=== PATIENT | male | born 2000 | race American Indian/Alaskan Native ===

== ENCOUNTER 2023-03-05 22:49 | Emergency (ER) | payer OTHER ==
[2023-03-05] MEDS ORDERED: Sodium Chloride 0.9% 10 ML Syringe FLUSH PRN (23:07)
[2023-03-05] MEDS ORDERED: LORazepam 2 MG/ML SDV IVPUSH ONE (23:21)
[2023-03-05] MEDS ORDERED: Sodium Chloride 0.9% 1,000 ML IV ONE (23:21)
[2023-03-05 23:23] LABS: HEMOGLOBIN 15.5 g/dL (12.9-17.7)
[2023-03-05 23:25] LABS: HEMATOCRIT 45.1 % (38.3-50.1); MEAN CORPUSCULAR HEMOGLOBIN 31.3 pg (27.0-33.3); MEAN CORPUSCULAR HGB CONC 34.3 g/dL (28.7-35.3); MEAN CORPUSCULAR VOLUME 91.2 fL (80.8-98.7); MEAN PLATELET VOLUME 7.7 fL (6.7-11.0); PLATELET COUNT,PLT 282 x10(3)uL (117-477); RED BLOOD CELL COUNT 4.95 x10(6)uL (3.90-5.90); RED CELL DISTRIBUTION WIDTH 13.1 % (12.4-15.0); WHITE BLOOD CELL COUNT,WBC 20.1 x10-3/uL (3.2-10.1)
[2023-03-05 23:27] LABS: BLOOD UREA NITROGEN,BUN 10 mg/dL (7-18); BUN/CREATININE RATIO 11.1 (9-20); CALCIUM 9.4 mg/dL (8.6-10.2); CARBON DIOXIDE,CO2 23 mmol/L (21-32); CHLORIDE,CL 103 mmol/L (100-110); CREATININE 0.9 mg/dL (0.70-1.30); ESTIMATED GFR 125 mL/min (>60); GLUCOSE RANDOM 113 mg/dL (80-116); POTASSIUM,K 3.7 mmol/L (3.5-5.3); SODIUM,NA 139 mmol/L (135-145)
[2023-03-05 23:30] LABS: C-REACTIVE PROTEIN 0.57 mg/dL (<0.33); LIPASE 20 U/L (16-77)
[2023-03-05 23:32] LABS: ETHANOL BLOOD MEDICAL < 0.03 % (<0.03)
[2023-03-05 23:35] LABS: A/G RATIO 1.1; ALANINE AMINOTRANSFERASE,ALT 25 U/L (12-36); ALBUMIN 4.2 g/dL (3.5-5.2); ALKALINE PHOSPHATASE 87 IU/L (56-112); ASPARTATE AMNIOTRANSFERASE,AST 23 IU/L (5-25); BILIRUBIN TOTAL 0.9 mg/dL (0.1-1.3)
[2023-03-05 23:45] LABS: EOSINOPHILS PERCENT MAN 1 % (0-5); LYMPHOCYTES PERCENT MAN 13 % (13-37); MONOCYTES PERCENT MAN 3 % (4-12); SEG NEUTROPHILS PERCENT MAN 83 % (46-82)
[2023-03-05 23:53] LABS: BILIRUBIN,URINE NEGATIVE (NEGATIVE); GLUCOSE,URINE NORMAL (NORMAL); KETONES,URINE NEGATIVE (NEGATIVE); LEUKOCYTE ESTERASE,URINE NEGATIVE (NEGATIVE); NITRITE,URINE NEGATIVE (NEGATIVE); OCCULT BLOOD,URINE NEGATIVE (NEGATIVE); PROTEIN,URINE NEGATIVE (NEGATIVE); UROBILINOGEN,URINE NORMAL (NEGATIVE)
[2023-03-05 23:58] LABS: COLOR,URINE YELLOW (YELLOW)
[2023-03-05 23:59] LABS: APPEARANCE,URINE CLEAR (CLEAR); BACTERIA,URINE OCCASIONAL (NS); RBC,URINE 0-5 (0-5); SQUAMOUS EPITHELIAL CELLS,UR RARE (NS,R,O); WBC,URINE 0-5 (0-5)
[2023-03-06 00:04] LABS: THC SCREEN,URINE POSITIVE (NEGATIVE)
[2023-03-06 00:05] LABS: AMPHETAMINES SCREEN, URINE NEGATIVE (NEGATIVE); BARBITURATE SCREEN,URINE NEGATIVE (NEGATIVE); BENZODIAZEPINES SCREEN,URINE NEGATIVE (NEGATIVE); BUPRENORPHINE SCREEN,URINE NEGATIVE (NEGATIVE); METHADONE SCREEN, URINE NEGATIVE (NEGATIVE); METHAMPHETAMINE SCREEN, URINE NEGATIVE (NEGATIVE); OXYCODONE SCREEN,URINE NEGATIVE (NEGATIVE); PROPOXYPHENE SCREEN,URINE NEGATIVE (NEGATIVE)
[2023-03-06] MEDS ORDERED: Ketorolac 30 MG/ML SDV IVPUSH ONE (00:36)
[2023-03-06] MEDS ORDERED: LORazepam 2 MG/ML SDV IVPUSH ONE (00:36)
[2023-03-06 01:48] LABS: STREP A BY PCR NOT DETECTED (NOT DETECT)
[2023-03-06 02:01] LABS: CORONAVIRUS COVID-19 NAA NEGATIVE (NEGATIVE)
== END 2023-03-06 02:41 | disposition home or self-care (01) ==
LOC: FB.ED 22:49
DX: E86.0 Dehydration (principal); M62.838 Other muscle spasm; R10.9 Unspecified abdominal pain; Z72.0 Tobacco use; Z88.0 Allergy status to penicillin; Z20.822 Contact with and (suspected) exposure to COVID-19
CPT/HCPCS: 36415; 80053; 80307; 81001; 82550; 83605; 83690; 85025; 86140; 87635; 87651; 96361; 96374; 96375; 96376; 99283; J1885; J2060; J7030; U0002

== ENCOUNTER 2023-07-05 17:31 | Emergency (ER) | payer OTHER ==
[2023-07-05] MEDS ORDERED: Acetaminophen/HYDROcodone 325-5 MG Tab PO ONE (18:13)
[2023-07-05] MEDS ORDERED: Ketorolac 30 MG/ML SDV IM STA (18:13)
[2023-07-05] MEDS ORDERED: cefTRIAXone 1 GM Vial IM ONE (18:13)
== END 2023-07-05 19:19 | disposition home or self-care (01) ==
LOC: FB.ED 17:31
DX: L05.01 Pilonidal cyst with abscess (principal); F17.210 Nicotine dependence, cigarettes, uncomplicated; Z79.899 Other long term (current) drug therapy; Z88.0 Allergy status to penicillin
CPT/HCPCS: 96372; 99283; A9270; J0696; J1885

== ENCOUNTER 2023-08-24 09:22 | Emergency (ER) | payer OTHER ==
[2023-08-24] MEDS ORDERED: Sodium Chloride 0.9% 10 ML Syringe FLUSH PRN (09:47)
[2023-08-24] MEDS ORDERED: Ondansetron 4 MG/2 ML SDV IVPUSH ONE (09:47)
[2023-08-24 10:00] LABS: BASOPHILS ABSOLUTE AUTO 0.1 x10-3/uL (0.0-0.3); BASOPHILS PERCENT AUTO 0.7 % (0.3-3.8); EOSINOPHILS PERCENT AUTO 0.5 % (0.1-6.8); HEMATOCRIT 44.6 % (38.3-50.1); HEMOGLOBIN 15.4 g/dL (12.9-17.7); LYMPHOCYTES PERCENT AUTO 22.4 % (15.8-45.3); MEAN CORPUSCULAR HEMOGLOBIN 31.1 pg (27.0-33.3); MEAN CORPUSCULAR HGB CONC 34.4 g/dL (28.7-35.3); MEAN CORPUSCULAR VOLUME 90.4 fL (80.8-98.7); MEAN PLATELET VOLUME 7.5 fL (6.7-11.0); MONOCYTES ABSOLUTE AUTO 0.7 x10-3/uL (0.0-1.2); MONOCYTES PERCENT AUTO 8.3 % (5.5-15.2); NEUTROPHILS PERCENT AUTO 68.1 % (40.3-71.8); PLATELET COUNT,PLT 317 x10(3)uL (117-477); RED BLOOD CELL COUNT 4.94 x10(6)uL (3.90-5.90); RED CELL DISTRIBUTION WIDTH 13.2 % (12.4-15.0); WHITE BLOOD CELL COUNT,WBC 8.8 x10-3/uL (3.2-10.1)
[2023-08-24] MEDS ORDERED: Sodium Chloride 0.9% 1,000 ML IV SCH (10:00)
[2023-08-24 10:07] LABS: BLOOD UREA NITROGEN,BUN 10 mg/dL (7-18); BUN/CREATININE RATIO 11.1 (9-20); CALCIUM 9.4 mg/dL (8.6-10.2); CARBON DIOXIDE,CO2 26 mmol/L (21-32); CHLORIDE,CL 100 mmol/L (100-110); CREATININE 0.9 mg/dL (0.70-1.30); EST CRCL DRUG DOSING (CG) 120.37 mL/min; ESTIMATED GFR 124 mL/min (>60); GLUCOSE RANDOM 97 mg/dL (80-116); POTASSIUM,K 3.7 mmol/L (3.5-5.3); SODIUM,NA 134 mmol/L (135-145)
[2023-08-24 10:13] LABS: A/G RATIO 1.1; ALANINE AMINOTRANSFERASE,ALT 43 U/L (12-36); ALBUMIN 4.2 g/dL (3.5-5.2); ALKALINE PHOSPHATASE 79 IU/L (56-112); ASPARTATE AMNIOTRANSFERASE,AST 24 IU/L (5-25); BILIRUBIN TOTAL 0.7 mg/dL (0.1-1.3); PROTEIN TOTAL,TP 8.1 g/dL (6.0-8.0)
[2023-08-24] MEDS ORDERED: Ibuprofen 800 MG Tab PO ONE (10:31)
[2023-08-24] MEDS ORDERED: Acetaminophen 500 MG Tab PO ONE (10:32)
[2023-08-24 10:39] LABS: INFLUENZA A NAA NEGATIVE (NEGATIVE); INFLUENZA B NAA NEGATIVE (NEGATIVE); RESPIRATORY SYNCYTIAL VIR NAA NEGATIVE (NEGATIVE)
[2023-08-24 10:40] LABS: CORONAVIRUS COVID-19 NAA NEGATIVE (NEGATIVE)
== END 2023-08-24 11:15 | disposition home or self-care (01) ==
LOC: FB.ED 09:22
DX: K52.9 Noninfective gastroenteritis and colitis, unspecified (principal); E86.0 Dehydration; Z20.822 Contact with and (suspected) exposure to COVID-19; F17.210 Nicotine dependence, cigarettes, uncomplicated; Z79.899 Other long term (current) drug therapy; Z88.0 Allergy status to penicillin
CPT/HCPCS: 0241U; 36415; 80053; 85025; 87651; 96361; 96374; 99284; A9270; J2405; J3490; J7030